=== PATIENT | female | born 1975 | race Caucasian/White ===

== ENCOUNTER 2023-02-16 12:30 | Inpatient (IN) | payer MEDICAID ==
[~2023-02-16] VITALS: Ht 160 cm; Wt 70.3 kg
[2023-02-16 13:13] LABS: BASOPHILS % (AUTO) 0.9 % (0.0-2.0); EOSINOPHILS # (AUTO) 0.1 K/uL (0.0-0.4); EOSINOPHILS % (AUTO) 0.9 % (0.0-4.0); HEMATOCRIT 36.7 % (36-48); HEMOGLOBIN 11.9 g/dL (12.0-16.0); LYMPHOCYTES # (AUTO) 1.8 K/uL (1.0-5.5); LYMPHOCYTES % (AUTO) 32.4 % (20.5-51.5); MEAN CORPUSCULAR HEMOGLOBIN 30 pg (27-31); MEAN CORPUSCULAR HGB CONC 32 % (32-36); MEAN CORPUSCULAR VOLUME 93 fL (79.0-98.0); MONOCYTES # (AUTO) 0.4 K/uL (0.0-1.0); MONOCYTES % (AUTO) 7.5 % (1.7-9.3); NEUTROPHILS # (AUTO) 3.3 K/uL (1.8-7.7); NEUTROPHILS % (AUTO) 58.3 % (40.0-70.0); PLATELET COUNT (AUTO) 396 K/uL (130-430); RED BLOOD CELL COUNT(AUTO) 3.94 MIL/uL (4.2-6.2); RED CELL DISTRIBUTION WIDTH 12.8 % (9.0-15.0); WHITE BLOOD COUNT (AUTO) 5.7 K/uL (4.8-10.8)
[2023-02-16 13:24] LABS: ACETONE, SERUM NEGATIVE (NEGATIVE)
[2023-02-16] MEDS ORDERED: INSU100V9 SQ (13:24)
[2023-02-16] MEDS ORDERED: LISPRO SQ (13:24)
[2023-02-16 13:27] LABS: SERUM HCG (QUALITATIVE) NEGATIVE (NEGATIVE)
[2023-02-16 13:32] VITALS: BP_SYST 154; PULSE 88; RESP 20; TEMP 97.2; O2SAT 95
[2023-02-16 13:34] LABS: INR 0.9 (0.8-1.2); PROTHROMBIN TIME 9.3 SECS (9.5-12.5)
[2023-02-16 13:42] LABS: ALANINE AMINOTRANSFERASE 20 U/L (12-78); ALBUMIN 3.7 g/dL (3.4-4.8); AMYLASE 35 U/L (0-100); ANION GAP 10 (5-15); ASPARTATE AMINOTRANSFERASE 10 U/L (10-37); CALCIUM 9.7 mg/dL (8.4-11.0); CARBON DIOXIDE 24 mmol/L (23-29); CHLORIDE 93 mmol/L (98-107); CREATININE 1.48 mg/dL (0.55-1.30); GFR AFRICAN AMERICAN 48 mL/min (>90); LACTATE DEHYDROGENASE 146 U/L (81-234); LIPASE 244 U/L (73-393); SODIUM SERUM 127 mmol/L (136-145); TOTAL BILIRUBIN 0.4 mg/dL (0.0-1.0); TOTAL PROTEIN, SERUM 7.3 g/dL (6.4-8.3); UREA NITROGEN, BLOOD 24 mg/dL (8-21)
[2023-02-16 13:43] LABS: GFR NON AFRICAN-AMERICAN 40 mL/min (>90); GLUCOSE 559 mg/dL (74-106)
[2023-02-16] MEDS ORDERED: METOCLOPRAMIDE HCL 10 MG/2 ML VIAL IVP ONE (14:15)
[2023-02-16] MEDS ORDERED: DIPHENHYDRAMINE INJ 50 MG/ML VIAL IVP ONE (14:15)
[2023-02-16] MEDS ORDERED: INSULIN REGULAR, HUMAN 10 UNITS/0.1 ML, 3 ML VIAL IVP ONE (14:15)
[2023-02-16] MEDS ORDERED: NACL 0.9% 2,000 ML IV ONE (14:15)
[2023-02-16 15:52] LABS: BILIRUBIN,URINE NEGATIVE (NEGATIVE); BLOOD, URINE NEGATIVE (NEGATIVE); CLARITY/URINE CLEAR (CLEAR); COLOR,URINE YELLOW (YELLOW); GLUCOSE,URINE 3+ (NEGATIVE); KETONES,URINE NEGATIVE (NEGATIVE); LEUKOCYTE ESTERASE ,URINE NEGATIVE (NEGATIVE); NITRITE, URINE NEGATIVE (NEGATIVE); PH,URINE 5.5 (5.0-8.0); PROTEIN URINE NEGATIVE (NEGATIVE); UROBILINOGEN,URINE 0.2 (0.2-1.0)
[2023-02-16] MEDS ORDERED: NACL 0.9% 1,000 ML IV ONE (18:00)
[2023-02-16] MEDS ORDERED: LORazepam 1 MG TABLET PO ONE (20:00)
[2023-02-16] MEDS ORDERED: OXYC-874 PO (22:34)
[2023-02-16] MEDS ORDERED: ALPR2TAB7 PO (22:34)
[2023-02-16] MEDS ORDERED: ACETAMINOPHEN 325 MG TABLET PO PRN (23:15)
[2023-02-16 23:33] VITALS: BP_SYST 135; PULSE 88; RESP 18; TEMP 97.6; O2SAT 98
[2023-02-16 23:34] VITALS: O2SAT 98
[2023-02-16] MEDS: OXYCODONE/ACETAMINOPHEN 5-325 TABLET PO PRN (23:53)
[2023-02-16] MEDS: NACL 0.9% 1,000 ML IV SCH (23:53)
[2023-02-17] MEDS ORDERED: ALPRAZolam 0.25 MG TABLET PO PRN ×2 (05:45→06:30)
[2023-02-17] MEDS: OXYCODONE/ACETAMINOPHEN 5-325 TABLET PO PRN ×3 (05:51→21:25)
[2023-02-17] MEDS ORDERED: D5W 1,000 ML IV PRN (07:00)
[2023-02-17] MEDS ORDERED: DEXTROSE 50%-WATER 50 ML DISP.SYRIN IVP PRN (07:00)
[2023-02-17] MEDS ORDERED: GLUCOSE (DEXTROSE) ORAL GEL -Adults PO PRN (07:00)
[2023-02-17] MEDS: INSULIN LISPRO SLIDING SCALE 100 UNITS/ML, 3 ML VIAL (humaLOG) SUBCUT PRN ×3 (07:04→21:44)
[2023-02-17] MEDS: NACL 0.9% 1,000 ML IV SCH ×2 (07:15→17:15)
[2023-02-17 08:00] VITALS: BP_SYST 121; PULSE 80; RESP 18; TEMP 97.5; O2SAT 100; O2SAT 97
[2023-02-17 11:30] VITALS: BP_SYST 134; PULSE 100; RESP 19; TEMP 98.6; O2SAT 96
[2023-02-17] MEDS ORDERED: PANTOPRAZOLE SODIUM 40 MG/VIAL (PROTONIX) IVP ONE (15:30)
[2023-02-17 15:35] LABS: BARBITURATE, URINE NEGATIVE (NEG <=200); BENZODIAZEPINE, URINE POSITIVE (NEG <=150); CANNABINOID, URINE NEGATIVE (NEG <=50); COCAINE, URINE NEGATIVE (NEG <=150); METHAMPHETAMINES SCREEN,URINE NEGATIVE (NEG <=500); OPIATE, URINE NEGATIVE (NEG <=100); PHENCYCLIDINE SCREEN,URINE NEGATIVE (NEG <=25); UR TRICYCLIC ANTIDEPRESSANTS NEGATIVE (NEG <=300); URINE AMPHETAMINE NEGATIVE (NEG <=500); URINE METHADONE NEGATIVE (NEG <=200); URINE PROPOXYPHENE SCREEN NEGATIVE (NEG <=300)
[2023-02-17 15:36] LABS: URINE OXYCODONE SCREEN POSITIVE (NEG <=100)
[2023-02-17] MEDS: ALPRAZolam 0.25 MG TABLET PO PRN (16:39)
[2023-02-17 17:30] VITALS: BP_SYST 148; PULSE 94; RESP 18; TEMP 99; O2SAT 95
[2023-02-17 19:30] VITALS: O2SAT 95
[2023-02-17 20:00] VITALS: BP_SYST 121; PULSE 94; RESP 19; TEMP 97.3; O2SAT 95
[2023-02-17] MEDS ORDERED: INSULIN GLARGINE 100 UNITS/ML, 10 ML VIAL SUBCUT SCH (21:00)
[2023-02-17] MEDS: OLANZapine 5 MG TABLET PO SCH (21:24)
[2023-02-18] VITALS (8 sets, daily range): BP systolic 104–146; PULSE 81–95; RESP 17–18; TEMP 97–98.8; O2SAT 96–98
[2023-02-18] MEDS: ALPRAZolam 0.25 MG TABLET PO PRN ×4 (03:47→23:05)
[2023-02-18] MEDS: NACL 0.9% 1,000 ML IV SCH ×3 (03:49→23:15)
[2023-02-18] MEDS: OXYCODONE/ACETAMINOPHEN 5-325 TABLET PO PRN ×3 (05:09→23:06)
[2023-02-18 05:40] LABS: BASOPHILS % (AUTO) 0.7 % (0.0-2.0); EOSINOPHILS # (AUTO) 0.1 K/uL (0.0-0.4); EOSINOPHILS % (AUTO) 1.7 % (0.0-4.0); HEMOGLOBIN 11.3 g/dL (12.0-16.0); LYMPHOCYTES % (AUTO) 49.8 % (20.5-51.5); MEAN CORPUSCULAR HEMOGLOBIN 30 pg (27-31); MEAN CORPUSCULAR HGB CONC 32 % (32-36); MEAN CORPUSCULAR VOLUME 93 fL (79.0-98.0); MONOCYTES # (AUTO) 0.5 K/uL (0.0-1.0); MONOCYTES % (AUTO) 7.5 % (1.7-9.3); NEUTROPHILS # (AUTO) 2.5 K/uL (1.8-7.7); NEUTROPHILS % (AUTO) 40.3 % (40.0-70.0); PLATELET COUNT (AUTO) 403 K/uL (130-430); RED BLOOD CELL COUNT(AUTO) 3.77 MIL/uL (4.2-6.2); RED CELL DISTRIBUTION WIDTH 12.8 % (9.0-15.0); WHITE BLOOD COUNT (AUTO) 6.1 K/uL (4.8-10.8)
[2023-02-18 06:18] LABS: ALBUMIN 3.3 g/dL (3.4-4.8); CALCIUM 9.6 mg/dL (8.4-11.0); CREATININE 1.06 mg/dL (0.55-1.30); POTASSIUM 3.7 mmol/L (3.5-5.1); THYROID STIMULATING HORMONE 1.35 uIu/mL (0.34-4.82); TOTAL BILIRUBIN 0.2 mg/dL (0.0-1.0); TOTAL PROTEIN, SERUM 6.7 g/dL (6.4-8.3)
[2023-02-18] MEDS ORDERED: SIMETHICONE 40 MG/0.6 ML ML ONE (07:59)
[2023-02-18] MEDS ORDERED: MEPERIDINE 100 MG INJ. 100 MG/ML VIAL ONE (08:00)
[2023-02-18] MEDS ORDERED: MIDAZOLAM HCL 5 MG/5 ML VIAL ONE ×2 (08:00→08:36)
[2023-02-18] MEDS ORDERED: DIPHENHYDRAMINE INJ 50 MG/ML VIAL ONE (08:23)
[2023-02-18] MEDS: OLANZapine 5 MG TABLET PO SCH ×2 (09:00→20:43)
[2023-02-18] MEDS: PANTOPRAZOLE SODIUM 40 MG/VIAL (PROTONIX) IVP SCH (09:46)
[2023-02-18] MEDS ORDERED: BISACODYL 5 MG TABLET.DR (DULCOLAX) PO ONE (17:00)
[2023-02-18] MEDS ORDERED: GOLYTELY / COLYTE SOLUTION 4 LITERS PO ONE (18:00)
[2023-02-18] MEDS: INSULIN LISPRO SLIDING SCALE 100 UNITS/ML, 3 ML VIAL (humaLOG) SUBCUT PRN (18:18)
[2023-02-18] MEDS: INSULIN GLARGINE 100 UNITS/ML, 10 ML VIAL SUBCUT SCH (20:53)
[2023-02-19 06:18] LABS: BASOPHILS # (AUTO) 0.1 K/uL (0.0-0.2); BASOPHILS % (AUTO) 0.8 % (0.0-2.0); EOSINOPHILS # (AUTO) 0.1 K/uL (0.0-0.4); EOSINOPHILS % (AUTO) 2.1 % (0.0-4.0); HEMATOCRIT 35.2 % (36-48); HEMOGLOBIN 11.4 g/dL (12.0-16.0); LYMPHOCYTES # (AUTO) 3.4 K/uL (1.0-5.5); LYMPHOCYTES % (AUTO) 49.9 % (20.5-51.5); MEAN CORPUSCULAR HEMOGLOBIN 30 pg (27-31); MEAN CORPUSCULAR HGB CONC 32 % (32-36); MEAN CORPUSCULAR VOLUME 93 fL (79.0-98.0); MONOCYTES # (AUTO) 0.6 K/uL (0.0-1.0); MONOCYTES % (AUTO) 8.6 % (1.7-9.3); NEUTROPHILS # (AUTO) 2.6 K/uL (1.8-7.7); NEUTROPHILS % (AUTO) 38.6 % (40.0-70.0); PLATELET COUNT (AUTO) 379 K/uL (130-430); RED BLOOD CELL COUNT(AUTO) 3.79 MIL/uL (4.2-6.2); RED CELL DISTRIBUTION WIDTH 12.8 % (9.0-15.0); WHITE BLOOD COUNT (AUTO) 6.8 K/uL (4.8-10.8)
[2023-02-19 06:43] LABS: CALCIUM 9.4 mg/dL (8.4-11.0); CREATININE 0.91 mg/dL (0.55-1.30); POTASSIUM 3.8 mmol/L (3.5-5.1)
[2023-02-19 07:00] VITALS: BP_SYST 138; PULSE 97; RESP 18; TEMP 98.4; O2SAT 97; O2SAT 98
[2023-02-19] MEDS ORDERED: SIMETHICONE 40 MG/0.6 ML ML ONE (07:54)
[2023-02-19] MEDS ORDERED: MIDAZOLAM HCL 5 MG/5 ML VIAL ONE (07:54)
[2023-02-19] MEDS ORDERED: MEPERIDINE 100 MG INJ. 100 MG/ML VIAL ONE (07:54)
[2023-02-19] MEDS ORDERED: BISACODYL 5 MG TABLET.DR (DULCOLAX) PO ONE (09:15)
[2023-02-19] MEDS: NACL 0.9% 1,000 ML IV SCH ×2 (09:15→19:15)
[2023-02-19] MEDS: OLANZapine 5 MG TABLET PO SCH ×2 (09:40→21:19)
[2023-02-19] MEDS: OXYCODONE/ACETAMINOPHEN 5-325 TABLET PO PRN ×3 (09:49→21:19)
[2023-02-19] MEDS: PANTOPRAZOLE SODIUM 40 MG/VIAL (PROTONIX) IVP SCH (09:56)
[2023-02-19] MEDS: INSULIN LISPRO SLIDING SCALE 100 UNITS/ML, 3 ML VIAL (humaLOG) SUBCUT PRN ×3 (13:46→21:23)
[2023-02-19] MEDS: ALPRAZolam 0.25 MG TABLET PO PRN (16:08)
[2023-02-19 20:00] VITALS: BP_SYST 136; PULSE 81; RESP 18; TEMP 97.8; O2SAT 99
[2023-02-19] MEDS: INSULIN GLARGINE 100 UNITS/ML, 10 ML VIAL SUBCUT SCH (21:22)
[2023-02-19 22:35] VITALS: O2SAT 99
[2023-02-20 00:15] VITALS: BP_SYST 129; PULSE 94; RESP 18; TEMP 97.6; O2SAT 95
[2023-02-20] MEDS: ALPRAZolam 0.25 MG TABLET PO PRN ×3 (01:22→20:42)
[2023-02-20] MEDS: OXYCODONE/ACETAMINOPHEN 5-325 TABLET PO PRN ×3 (02:46→20:41)
[2023-02-20] MEDS: NACL 0.9% 1,000 ML IV SCH ×2 (06:15→11:24)
[2023-02-20] MEDS: INSULIN LISPRO SLIDING SCALE 100 UNITS/ML, 3 ML VIAL (humaLOG) SUBCUT PRN ×4 (06:16→20:48)
[2023-02-20 07:00] VITALS: BP_SYST 130; PULSE 90; RESP 16; TEMP 98.5; O2SAT 98
[2023-02-20 09:00] VITALS: BP_SYST 130; PULSE 90; RESP 16; TEMP 98.6; O2SAT 97
[2023-02-20] MEDS: OLANZapine 5 MG TABLET PO SCH ×2 (09:58→20:40)
[2023-02-20] MEDS: PANTOPRAZOLE SODIUM 40 MG/VIAL (PROTONIX) IVP SCH (10:49)
[2023-02-20 16:00] VITALS: BP_SYST 123; PULSE 80; RESP 18; TEMP 98.5
[2023-02-20 20:00] VITALS: BP_SYST 133; PULSE 98; RESP 18; TEMP 98.6; O2SAT 95
[2023-02-20] MEDS ORDERED: INSULIN GLARGINE 100 UNITS/ML, 10 ML VIAL SUBCUT SCH ×2 (21:00)
[2023-02-21] MEDS: ALPRAZolam 0.25 MG TABLET PO PRN (04:24)
[2023-02-21] MEDS: OXYCODONE/ACETAMINOPHEN 5-325 TABLET PO PRN ×2 (04:25→09:46)
[2023-02-21] MEDS: INSULIN LISPRO SLIDING SCALE 100 UNITS/ML, 3 ML VIAL (humaLOG) SUBCUT PRN ×2 (06:02→12:02)
[2023-02-21 06:06] VITALS: BP_SYST 133; PULSE 90; RESP 18; TEMP 98; O2SAT 98
[2023-02-21] MEDS ORDERED: CHOLECALCIFEROL (VITAMIN D3) 2,000 UNIT TABLET PO SCH (09:00)
[2023-02-21] MEDS ORDERED: PANTOPRAZOLE SODIUM 40 MG TAB PO SCH (09:00)
[2023-02-21] MEDS ORDERED: INSULIN GLARGINE 100 UNITS/ML, 10 ML VIAL SUBCUT SCH (09:00)
[2023-02-21] MEDS: OLANZapine 5 MG TABLET PO SCH (09:08)
[2023-02-21] MEDS ORDERED: PRO40 PO (13:38)
[2023-02-21] MEDS ORDERED: VITD2000 PO (13:38)
[2023-02-21] MEDS ORDERED: OLAN5TAB3 PO (13:38)
[2023-02-21] MEDS ORDERED: INSU100V SUBCUT (14:58)
[2023-02-21] MEDS ORDERED: INSU100V9 SUBCUT (14:58)
[2023-02-21 15:34] VITALS: BP_SYST 122; PULSE 82; RESP 18; TEMP 98.6; O2SAT 97
== END 2023-02-21 17:50 | disposition home or self-care (01) | DRG 48 ==
LOC: SED 12:30 → SMU 21:12
PROVIDERS: ADMIT Internal Medicine; ATTEND Internal Medicine
PROC: 0DB78ZX Excision of Stomach, Pylorus, Via Natural or Artificial Opening Endoscopic, Diagnostic (ICD-10-PCS; 2023-02-18)
PROC: 0DB98ZX Excision of Duodenum, Via Natural or Artificial Opening Endoscopic, Diagnostic (ICD-10-PCS; principal; 2023-02-18 10:15)
PROC: 0DJD8ZZ Inspection of Lower Intestinal Tract, Via Natural or Artificial Opening Endoscopic (ICD-10-PCS; 2023-02-19)
DX: E11.43 Type 2 diabetes mellitus with diabetic autonomic (poly)neuropathy (principal); N17.0 Acute kidney failure with tubular necrosis; E44.1 Mild protein-calorie malnutrition; K31.84 Gastroparesis; K29.70 Gastritis, unspecified, without bleeding; K64.4 Residual hemorrhoidal skin tags; K57.90 Diverticulosis of intestine, part unspecified, without perforation or abscess without bleeding; E87.1 Hypo-osmolality and hyponatremia; F41.9 Anxiety disorder, unspecified; F17.210 Nicotine dependence, cigarettes, uncomplicated; E78.5 Hyperlipidemia, unspecified; Z20.822 Contact with and (suspected) exposure to COVID-19; E11.65 Type 2 diabetes mellitus with hyperglycemia; K21.9 Gastro-esophageal reflux disease without esophagitis; J44.9 Chronic obstructive pulmonary disease, unspecified; Z88.1 Allergy status to other antibiotic agents; Z88.8 Allergy status to other drugs, medicaments and biological substances; Z79.899 Other long term (current) drug therapy; Z79.891 Long term (current) use of opiate analgesic; Z59.00 Homelessness unspecified; Z79.4 Long term (current) use of insulin; Z80.8 Family history of malignant neoplasm of other organs or systems; Z68.27 Body mass index [BMI] 27.0-27.9, adult
CPT/HCPCS: 36415; 43239; 45378; 76376; 80048; 80053; 80307; 81003; 82009; 82150; 82306; 82962; 83037; 83605; 83615; 83690; 83735; 84443; 84703; 85025; 85610-TC; 85730-TC; 87081; 88305; 88312; 88313; 96361; 96374; 96375; 97116-GP; 97530-GP; 99285; C9113; J1200; J1815; J2175; J2250; J2765

== ENCOUNTER 2023-03-17 17:59 | Emergency (ER) | payer MEDICAID ==
[~2023-03-17] VITALS: Ht 160 cm; Wt 72.6 kg
[~2023-03-17 17:59] MED LIST: ALPR2TAB7 PO; INSU100V SUBCUT; INSU100V9 SQ; INSU100V9 SUBCUT; LISPRO SQ; OLAN5TAB3 PO; OXYC-874 PO; PRO40 PO; VITD2000 PO
[2023-03-17 18:28] VITALS: BP_SYST 148; PULSE 78; RESP 18; TEMP 97.9; O2SAT 99
[2023-03-17] MEDS ORDERED: HYDROcodone/ACETAMIN 5-325 MG TAB (NORCO/ VICODIN) PO ONE (19:15)
[2023-03-17 19:37] LABS: BASOPHILS % (AUTO) 0.9 % (0.0-2.0); EOSINOPHILS # (AUTO) 0.1 K/uL (0.0-0.4); EOSINOPHILS % (AUTO) 2.7 % (0.0-4.0); HEMATOCRIT 32.8 % (36-48); HEMOGLOBIN 10.8 g/dL (12.0-16.0); LYMPHOCYTES # (AUTO) 2.1 K/uL (1.0-5.5); LYMPHOCYTES % (AUTO) 40.4 % (20.5-51.5); MEAN CORPUSCULAR HEMOGLOBIN 30 pg (27-31); MEAN CORPUSCULAR HGB CONC 33 % (32-36); MEAN CORPUSCULAR VOLUME 91 fL (79.0-98.0); MONOCYTES # (AUTO) 0.7 K/uL (0.0-1.0); MONOCYTES % (AUTO) 12.8 % (1.7-9.3); NEUTROPHILS # (AUTO) 2.3 K/uL (1.8-7.7); NEUTROPHILS % (AUTO) 43.2 % (40.0-70.0); PLATELET COUNT (AUTO) 285 K/uL (130-430); RED BLOOD CELL COUNT(AUTO) 3.58 MIL/uL (4.2-6.2); RED CELL DISTRIBUTION WIDTH 13.5 % (9.0-15.0); WHITE BLOOD COUNT (AUTO) 5.2 K/uL (4.8-10.8)
[2023-03-17 19:59] LABS: CALCIUM 9.4 mg/dL (8.4-11.0); CREATININE 1.53 mg/dL (0.55-1.30); POTASSIUM 4.4 mmol/L (3.5-5.1)
[2023-03-17 20:03] LABS: ALBUMIN 3.3 g/dL (3.4-4.8); TOTAL BILIRUBIN 0.2 mg/dL (0.0-1.0); TOTAL PROTEIN, SERUM 6.5 g/dL (6.4-8.3)
[2023-03-17 20:12] LABS: BILIRUBIN,URINE NEGATIVE (NEGATIVE); BLOOD, URINE NEGATIVE (NEGATIVE); CLARITY/URINE CLEAR (CLEAR); COLOR,URINE YELLOW (YELLOW); GLUCOSE,URINE NEGATIVE (NEGATIVE); KETONES,URINE NEGATIVE (NEGATIVE); LEUKOCYTE ESTERASE ,URINE NEGATIVE (NEGATIVE); NITRITE, URINE NEGATIVE (NEGATIVE); PROTEIN URINE NEGATIVE (NEGATIVE); UROBILINOGEN,URINE 0.2 (0.2-1.0)
[2023-03-17] MEDS ORDERED: SENN8.6T19 PO (21:03)
[2023-03-17] MEDS ORDERED: POLY119P2 PO (21:03)
[2023-03-17 22:38] VITALS: BP_SYST 160; PULSE 78; RESP 18; TEMP 98.3; O2SAT 99
== END 2023-03-17 21:46 | disposition home or self-care (01) ==
LOC: SED 17:59
DX: K59.00 Constipation, unspecified (principal); R35.0 Frequency of micturition; R30.0 Dysuria; E11.9 Type 2 diabetes mellitus without complications; Z88.1 Allergy status to other antibiotic agents; Z88.6 Allergy status to analgesic agent; Z88.8 Allergy status to other drugs, medicaments and biological substances; Z79.4 Long term (current) use of insulin; Z79.899 Other long term (current) drug therapy
CPT/HCPCS: 36415; 80053; 81001; 81003; 82962; 85025; 99283